=== PATIENT | female | born 1965 | race Caucasian/White ===

== ENCOUNTER 2021-07-18 13:50 | Outpatient (CLI) | payer MEDICARE, MEDICAID | END 2021-07-18 13:51 | disposition home or self-care (01) | LOC: CSHWCC 13:50 | PROVIDERS: ATTEND Nurse Practitioner Family | DX: L89.612 Pressure ulcer of right heel, stage 2 (principal) | CPT/HCPCS: 97139; G0463; 99213 ==

== ENCOUNTER 2021-08-14 12:54 | Outpatient (CLI) | payer MEDICARE, MEDICAID | END 2021-08-14 12:55 | disposition home or self-care (01) | LOC: CSHWCC 12:54 | PROVIDERS: ATTEND Nurse Practitioner Family | DX: L89.612 Pressure ulcer of right heel, stage 2 (principal); R60.0 Localized edema | CPT/HCPCS: 29581 ==

== ENCOUNTER 2021-08-28 12:50 | Outpatient (CLI) | payer MEDICARE, MEDICAID | END 2021-08-28 12:51 | disposition home or self-care (01) | LOC: CSHWCC 12:50 | PROVIDERS: ATTEND Nurse Practitioner Family | DX: L89.612 Pressure ulcer of right heel, stage 2 (principal); R60.0 Localized edema | CPT/HCPCS: 29581 ==

== ENCOUNTER 2021-09-27 10:16 | Outpatient (CLI) | payer MEDICARE, MEDICAID | END 2021-09-27 10:17 | disposition home or self-care (01) | LOC: CSHWCC 10:16 | PROVIDERS: ATTEND Nurse Practitioner Family | DX: L89.612 Pressure ulcer of right heel, stage 2 (principal) | CPT/HCPCS: 97139; G0463; 99212 ==